=== PATIENT | male | born 2000 | race Caucasian/White ===

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

== ENCOUNTER 2023-11-16 10:37 | Outpatient (REF) | payer OTHER, SELFPAY | END 2023-11-16 10:38 | disposition home or self-care (01) | LOC: LBN 10:37 | PROVIDERS: PCP Family Medicine; Visit Provider Physician Assistant | DX: J02.9 Acute pharyngitis, unspecified (principal) | CPT/HCPCS: 87070 ==

== ENCOUNTER 2025-07-07 08:45 | Emergency (ER) | payer OTHER, SELFPAY ==
[2025-07-07 08:51] VITALS: BP 121/67; PULSE 72; RESP 18; TEMP 37.1; O2SAT 98
--- NOTE | 2025-07-07 09:00 | DI.RAD_ITS ---
Exam(s) XR FINGER RT MIDDLE EXAM: XR FINGER RT MIDDLE CLINICAL HISTORY: impaled wooden FB, PIP, eval fx. TECHNIQUE: 2D digital imaging was performed. Three views. COMPARISON: No exams were available for comparison FINDINGS: BONES: There is a comminuted fracture of the middle phalanx of the middle finger. There is displacement and angulation. The distal phalanx and proximal phalanx appear intact. No bony destructive lesion is seen. JOINTS: No dislocation present. SOFT TISSUE: Large soft tissue defect and soft tissue air. IMPRESSION: Comminuted fracture of the middle phalanx. DATA REPOSITORY: RADIATION DOSE DELIVERED:
--- NOTE | 2025-07-07 09:02 | ED.GENADUL_ITS ---
Discharge Plan Disposition Patient Disposition: Transfer-Acute Inpatient Care Specific Acute In Facility: [facility] Condition: Stable Discharge Details Clinical Impression: Fracture of middle phalanx of finger, Foreign body of finger of right hand Primary Care Provider: Rabia Garcia ED Provider: Nikky De Santiago Home Meds and New Rx's Prescriptions: No Action No Known Home Meds Discharge Instructions Instructions: Finger Fracture ED Additional Instructions: You were seen in the emergency department today for evaluation of a splinter of wood impaled in your finger. In our department a full physical examination performed and had an x-ray that showed a fracture of that finger. You received numbing medication and had antibiotics administered, you received 1 g of Ancef at 10:45 AM. The splinter was removed and the wound was thoroughly washed out. I did consult [facility] hand surgery, who recommends that you present immediately to the emergency department in [facility] for evaluation as you may require washout and or surgical intervention. I recommend that you find somebody to give you a ride down to [facility], do not eat or drink on your way down, and leave the area dressed and taped to the other finger. Please present immediately to the emergency department, and you can show them this paperwork if they have any questions. Thank you for allowing us to be part of your care. Discharge Data Discharge Date/Time-TO BE ENTERED AT DEPARTURE: 07/07/25 11:24 HPI General Mode of arrival: ambulatory . Date/Time Provider Initiated Documentation: 07/07/25 08:56 . Limitations to Documentation: no limitations . Information obtained by: patient . HPI Narrative: This is a 25-year-old male patient presenting for evaluation of a foreign body in the right middle finger. The patient was working with a saw, and a piece of wood kicked up and impaled his right middle finger. He did not sustain any other injury, and was in his normal state of health prior to this event. The patient reports that he has preserved sensation distal to this injury. He thinks his last tetanus shot was within 10 years. Has not taken any medication for management of symptoms prior to arrival. Was wearing gloves and has not been able to remove them. Related Data Home Medications ?Medication ?Instructions ?Recorded ?Confirmed Unknown [No Known Home Meds] 11/16/23 0 07/07/25 Allergies Allergy/AdvReac Type Severity Reaction Status Date / Time No Known Allergies Allergy Verified 07/07/25 08:54 General Stated Complaint: Laceration JENISE: 3 Exam Narrative Exam Narrative: Gen: Awake and alert, in no apparent distress HEENT: Non-icteric sclera Neck: Supple Lungs: No apparent respiratory distress, normal respiratory effort. CV: Appears well perfused Abdomen: Non-distended MSK: Moves 4 extremities without apparent limitation in ROM with the exception of the right middle finger. The patient has deformity noted to the midpoint of the finger, and a wood splinter is visualized to be entering just distal to the PIP. Hemostatic, brisk capillary refill and preserved sensation distal to this injury. Skin: Visualized skin without rashes, cyanosis. Neuro: Normal Gait, no obvious focal deficits or facial asymmetry. Speaks in full, clear sentences. Psych: Appropriate for situation. Course Vital Signs Vital signs: Vital Signs Temperature 37.1 C 07/07/25 08:51 Pulse 72 07/07/25 08:51 Respiratory Rate 18 07/07/25 08:51 Blood Pressure 121/67 07/07/25 08:51 Pulse Oximetry 98 07/07/25 08:51 Temperature 37.1 C 07/07/25 08:51 Temperature Source Oral 07/07/25 08:51 Pulse 72 07/07/25 08:51 Respiratory Rate 18 07/07/25 08:51 Blood Pressure 121/67 07/07/25 08:51 Blood Pressure Position Sitting 07/07/25 08:51 Pulse Oximetry 98 07/07/25 08:51 Oxygen Delivery Method Room Air 07/07/25 08:51 Oxygen Flow Rate 0 07/07/25 08:51 Pain Level 3 07/07/25 08:51 Procedure Foreign Body Removal Date of Procedure: 07/07/25. Time of procedure: 11:20 Provider that performed the procedure: Nikky De Santiago Patient Consented: Verbally Location of procedure: Upper extremity/right side Indication: History of foreign body. Confirmed by: direct visualization. Sterility: Non Sterile. Technique: Manual removal and Removal with forceps. Irrigation: Yes Amount of irrigation(mL): 250. Outcome: Sucessful. Procedure Description: After digital block was performed, the remnant of the glove was removed from around the impaled splinter of wood. Using hemostats, the splinter was firmly grasped, the finger was stabilized by second provider, and the splinter was removed using direct traction. The splinter was removed in its entirety, and the wound was thoroughly irrigated with sterile saline. Topical antibiotic ointment and a dressing was applied, and the finger was phill taped to the fourth digit given the presence of fracture. The patient tolerated this procedure well, with no immediate complications identified. Nerve Block 1st Nerve Block: Indication: Procedural Patient Consented: Verbally Local Anesthetic: Lidocaine 1% Amount of anethetic used(mL): 6 Sterility: Sterile Laterality: Right Nerve Blocks: digital Ultrasound: Not used. Procedure Tolerated: No Complications and Patient tolerated well Procedure Outcome: Successful Medical Decision Making This is a 25-year-old male patient presenting for evaluation of a foreign body in the right middle finger. Differential includes but is not limited to foreign body, fracture, dislocation, certainly considered tendinous injury, neurovascular injury. I will provide the patient with Tylenol and ibuprofen, and obtain an x-ray of the affected right hand. - X-ray reveals a comminuted fracture of the middle phalanx of the right middle finger. Dr. Srivastava with orthopedics reviewed the imaging, recommending consultation/referral to hand surgery for definitive management. He did recommend removal of the foreign body, as did the hand surgeon, and Ancef was provided prior to this procedure. A nerve block was performed with good analgesia achieved. The wood fragment was removed using traction and hemostats, the wound was thoroughly irrigated, a dressing was placed and the finger was phill taped to the fourth digit. [place] [facility] [place] for reevaluation and potential washout. The patient is appropriate to be taken to that facility POV, IV left in place and he was instructed to remain n.p.o. in anticipation of potential surgery. The patient had an opportunity to have all questions answered and understands that he must present immediately to the ER for [place] [facility] [place] Remained hemodynamically appropriate while under my care and left our facility without incident. Nikky De Santiago MD [facility] All Active Problems (Updated 07/07/25 @ 11:19 by Nikky De Santiago MD) Foreign body of finger of right hand (Acute) Fracture of middle phalanx of finger (Acute) Social History Smoking/Tobacco Use Status: Never Smoking risk assessment performed?: Yes Alcohol Intake: never Drug use: Rarely Substance use type: does not use Do you feel safe at home: Yes Do you feel safe in your relationship?: Yes
[2025-07-07] MEDS: Acetaminophen 500 MG TAB 1000 MG PO (09:07)
[2025-07-07] MEDS: Ibuprofen 600 MG TAB PO (09:07)
[2025-07-07] MEDS: Diph,Pertuss(Acell),Tet Vac/Pf 0.5 ML SYR IM (09:08)
[2025-07-07 09:58] VITALS: BP 125/71; PULSE 59; RESP 16; O2SAT 100
[2025-07-07] MEDS: ceFAZolin 1 GM/50 ML BAG IVPB (10:42)
[2025-07-07] MEDS: Lidocaine 2% Multi-Dose 20 ML VIAL IJ (10:45)
[2025-07-07 11:24] VITALS: BP 135/68; PULSE 76; RESP 16; O2SAT 98
== END 2025-07-07 11:24 | disposition short-term general hospital (02) ==
PROVIDERS: Emergency Provider Emergency Medicine; PCP Family Medicine
DX: S60.452A Superficial foreign body of right middle finger, initial encounter (principal); S62.622A Displaced fracture of middle phalanx of right middle finger, initial encounter for closed fracture; Z23 Encounter for immunization; W22.8XXA Striking against or struck by other objects, initial encounter
CPT/HCPCS: 64450; 90471; 90715; 96365; 99285; 73140; J0690; J2003